=== PATIENT | male | born 1930 | race Caucasian/White ===

== ENCOUNTER 2017-05-12 03:59 | Inpatient (IN) | payer MEDICARE, BC ==
--- NOTE | 2017-05-12 04:58 | ED ---
Chau Reis Benjamin, scribed for Mike Yanes MD on 05/12/17 at 0443 . Complex/Multi-Sys Presentation - HPI Summary HPI Summary: 86yo male BIBA for weakness. Pt has existing impaired vision, numbness, and weakness on his right side s/p CVA x2. Pt lowered himself to the ground last night due to weakness and couldnt get back up since. Pt denies a fall, and also denies any head injury. Pt states feeling oozy and weakness for a while, but couldnt specify for how long exactly. - History Of Current Complaint Chief Complaint: EDWeakness Time Seen by Provider: 05/12/17 04:34 Hx Obtained From: Patient Onset/Duration: Gradual Onset, Lasting Hours, Still Present Timing: Constant Severity Currently: Mild Severity Initially: Mild Location: Negative Associated Signs And Symptoms: Positive: Other - weakness - Allergies/Home Medications Allergies/Adverse Reactions: Allergies Allergy/AdvReac Type Severity Reaction Status Date / Time No Known Allergies Allergy Verified 09/04/13 15:06 PMH/Surg Hx/FS Hx/Imm Hx Endocrine/Hematology History: Denies: Hx Diabetes, Hx Thyroid Disease Cardiovascular History: Reports: Other Cardiovascular Problems/Disorders - CARDIOVERSION X 2 Denies: Hx Congestive Heart Failure, Hx Hypertension, Hx Pacemaker/ICD Respiratory History: Reports: Hx Pneumonia, Hx Pulmonary Embolism Denies: Hx Asthma, Hx Chronic Obstructive Pulmonary Disease (COPD), Other Respiratory Problems/Disorders GI History: Denies: Hx Ulcer History: Reports: Hx Benign Prostatic Hyperplasia, Other Problems/ Disorders - prostate ca Denies: Hx Acute Renal Failure, Hx Chronic Renal Failure, Hx Dialysis, Hx Kidney Infection, Hx Kidney Stones Sensory History: Reports: Hx Contacts or Glasses, Hx Vision Problem - 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, Hx Hearing Aid - BL, Hx Hearing Problem Denies: Hx Cataracts, Hx Eye Injury, Hx Eye Prosthesis, Hx Glaucoma, Hx Macular Degeneration, Hx Deafness, Other Sensory Impairments Opthamlomology History: Reports: Hx Contacts or Glasses, Hx Vision Problem - 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 Infectious Disease History: No Infectious Disease History: Denies: Hx Clostridium Difficile, Hx Hepatitis, Hx Human Immunodeficiency Virus (HIV), Hx of Known/Suspected MRSA, History Other Infectious Disease, Traveled Outside the [place] in Last 30 Days - Family History Known Family History: Positive: Unknown - unable to obtain, pt wouldnt give a Fhx - Social History Occupation: Retired Lives: Senior [facility] Alcohol Use: None Substance Use Type: Reports: None Hx Tobacco Use: Yes Smoking Status (MU): Never Smoked Tobacco Review of Systems Constitutional: Negative Eyes: Negative ENT: Negative Cardiovascular: Negative Respiratory: Negative Gastrointestinal: Negative Genitourinary: Negative Musculoskeletal: Negative Skin: Negative Positive: Weakness Psychological: Normal All Other Systems Reviewed And Are Negative: Yes Physical Exam Triage Information Reviewed: Yes Vital Signs On Initial Exam: Initial Vitals Temp Pulse Resp BP Pulse Ox 99.6 F 63 14 107/56 93 05/12/17 04:04 05/12/17 04:04 05/12/17 04:04 05/12/17 04:04 05/12/17 04:04 Vital Signs Reviewed: Yes Appearance: Positive: Well-Appearing, No Pain Distress Skin: Positive: Warm Head/Face: Positive: Normal Head/Face Inspection Eyes: Positive: GONZALES ENT: Positive: Hearing grossly normal Neck: Positive: Supple Respiratory/Lung Sounds: Positive: Breath Sounds Present Cardiovascular: Positive: RRR Abdomen Description: Positive: Nontender, Soft Bowel Sounds: Positive: Present Musculoskeletal: Positive: Strength/ROM Intact Neurological: Positive: Alert, Oriented to Person Place, Time Psychiatric: Positive: Affect/Mood Appropriate - Juany Coma Scale Coma Scale Total: 15 Diagnostics - Vital Signs Vital Signs Temp Pulse Resp BP Pulse Ox 05/12/17 04:04 99.6 F 63 14 107/56 93 - Laboratory Result Diagrams: 05/12/17 05:15 05/12/17 05:15 Lab Statement: Any lab studies that have been ordered have been reviewed, and results considered in the medical decision making process. - Radiology CXR Xray Interpretation: No Acute Changes Radiology Interpretation Completed By: ED Physician - EKG 0540. Cardiac Rate: NL - 60bpm EKG Rhythm: Sinus Rhythm EKG Interpretation: Right bundle first degree heart block Re-Evaluation - Re-Evaluation First Eval Comment: results d/w pt, case d/w dr danielle Complex Multi-Symp Course/Dx Course Of Treatment: discussed with Dr. Danielle (hospitalist) at 0605. - Diagnoses Provider Diagnoses: ACS (acute coronary syndrome) Discharge - Discharge Plan Condition: Fair Disposition: ADMITTED TO [facility] Referrals: Joo Jarrett MD [Primary Care Provider] - The documentation as recorded by the Chau palm Benjamin accurately reflects the service I personally performed and the decisions made by me, Mike Yanes MD.
[2017-05-12 05:37] LABS: Hematocrit 36 % (42-52); Hemoglobin 12.2 g/dl (14.0-18.0); Mean Corpuscular HGB Conc 34 g/dl (31-36); Mean Corpuscular Hemoglobin 31 pg (27-31); Mean Corpuscular Volume 91 fL (80-94); Mean Platelet Volume 10 um3 (7.4-10.4); Red Cell Distribution Width 14 % (10.5-15); White Blood Count 19.4 10^3/ul (3.5-10.8)
[2017-05-12 05:42] LABS: Add Diff/Slide Review? Slide Review Added; Comments Flag Yes
[2017-05-12 05:47] LABS: Albumin 3.4 g/dL (3.2-5.2); Calcium 9.2 mg/dL (8.6-10.3); EGFR African American 38.5 (>60); Globulin 3.7 g/dL (2-4); Magnesium 1.8 mg/dL (1.9-2.7); Total Protein 7.1 g/dL (6.4-8.9)
[2017-05-12 05:52] LABS: Troponin I 0.19 ng/mL (<0.04)
[2017-05-12] MEDS ORDERED: Aspirin Low Dose CHEW TAB* 81 MG PO ONE (05:53)
[2017-05-12] MEDS ORDERED: Aspirin Low Dose CHEW TAB* 81 MG ONE (05:54)
[2017-05-12 07:02] LABS: Urine Bacteria 3+ (Absent); Urine Bilirubin Negative (Negative); Urine Glucose Negative (Negative); Urine Nitrite Positive (Negative)
[2017-05-12] MEDS: cefTRIAXone VIAL(*) 1,000 MG in NS 0.9% 50 ML* 50 ML IVPB SCH (08:24)
--- NOTE | 2017-05-12 08:28 | RAD ---
INDICATION: Weakness. COMPARISON: Comparison is made with prior chest x-ray study from June 03, 2013. TECHNIQUE: Dual-energy PA and lateral views of the chest were obtained. FINDINGS: The heart is within normal limits in size. Mediastinal and hilar contours appear within normal limits. The lungs are underinflated and clear. There is flattening of the diaphragms suggestive of chronic obstructive pulmonary disease. IMPRESSION: 1. NO EVIDENCE FOR ACUTE FINDING. 2. FINDINGS SUGGESTIVE OF COPD.
[2017-05-12] MEDS ORDERED: Acetaminophen TAB* 325 MG PO PRN (08:29)
[2017-05-12] MEDS ORDERED: Morphine INJ* 2 MG/ML 1 ML SYRINGE IV PRN (08:29)
--- NOTE | 2017-05-12 08:50 | RAD ---
Indication: Intracranial hemorrhage, fall. CT of the brain was performed without IV contrast. Comparison is made with previous exam dated June 04, 2013. Ventricular structures are midline. No midline shift is noted. The extraction spaces are unremarkable. Hypodensity is noted in the left occipital lobe medially consistent with old infarct. This is unchanged from previous exam. Mastoid air cells and paranasal sinuses are otherwise unremarkable. Paranasal sinuses are otherwise unremarkable. 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 No intracranial hemorrhage is noted.
[2017-05-12] MEDS: NS 0.9% 1000 ML* 1,000 ML IV SCH ×2 (09:43→18:47)
[2017-05-12] MEDS: Amiodarone TAB* 200 MG PO SCH ×2 (09:43→20:49)
--- NOTE | 2017-05-12 10:14 | HP ---
CC: Dr. Han; Dr. Jarrett * HISTORY AND PHYSICAL: DATE OF ADMISSION: 05/12/17 PRIMARY CARE PROVIDER: Dr. Jarrett. CHIEF COMPLAINT: Confusion, generalized weakness. HISTORY OF PRESENT ILLNESS: Luciano Neumann is an 86-year-old male who presents confused, brought in from [facility]. Apparently, the patient was found on the floor. Originally, he did not want to come in to be evaluated, but he was not strong enough to ambulate by himself. He denied any chest pain or shortness of breath when he was found. He stated that he thought that he took a nap, but then he found himself on the floor and he does not remember how he got there. He is also disoriented to date and day. He thinks that it was still , but it was Monday morning. The patient has abrasions on his head and he does not remember hitting his head. He has marked leukocytosis, abnormal urinalysis, and a working diagnosis of severe sepsis. He also has elevated troponin but no complaints of chest pain. He is going to be admitted to telemetry monitored floor. PAST MEDICAL HISTORY: 1. History of paroxysmal atrial flutter, status post cardioversion in the past , on amiodarone and Pradaxa. 2. History of PE in the past, on Pradaxa. 3. History of basal cell carcinoma. 4. History of prostate cancer. 5. 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 Patient ambulates without support. 6. Chronic kidney disease stage 3 with creatinine of 1.8 at baseline. MEDICATIONS: Include: 1. VESIcare 10 mg daily. 2. Pradaxa 150 mg b.i.d. 3. Amiodarone 200 mg b.i.d. ALLERGIES: No known drug allergies. SOCIAL HISTORY: The patient stated that he stopped smoking over 50 years ago and he does not have a significant smoking history. He denies any alcohol or drug use. He lives by himself at [facility] and he has trouble explaining to me which part of [facility] he is living in. I suspect that it was in the [facility]. His healthcare proxy is his friend, Rosario Tesfaye, phone #. The patient lives alone. 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 He is a vegan. His altered healthcare proxy is his daughter, Katie Alcaraz. He has overall two children. REVIEW OF SYSTEMS: Please see history of present illness. The patient is a very vague historian and disoriented. He denies any headache, chest pain. He states that he has problems with "seeing to the right" after his stroke. He also has mild right-sided weakness, but that is chronic. He can ambulate without a cane though. He does not remember what happened in the past 2 days, but he stated that he had no appetite for 3 days before that. He also complains of burning on urination. He denies chest pain. All the remaining 14 systems are reviewed with the patient and the response was mostly vague, but otherwise they were negative. PHYSICAL EXAMINATION GENERAL: The patient is a pleasant 86-year-old male who is in no acute distress. The patient knows that he is in the hospital. He does not remember his age. He does not remember the year. He remembers that the president is [employer]. VITAL SIGNS: Blood pressure of 110/44, heart rate of 57 and regular, respiratory rate 26, oxygen saturation 93% on room air, temperature of 99.6. HEENT: Head with two abrasions, one in the center of patient's forehead and another one with a tiny hematoma on the left frontal scalp parietal area. Eyes : Extraocular muscles intact. Pupils are equal and reactive to light and accommodation. Oropharynx clear. Mucosa dry. NECK: Supple. No JVD, no bruits bilaterally. RESPIRATORY: Clear to auscultation bilaterally. CARDIOVASCULAR: Regular rate and rhythm. No murmur. ABDOMEN: Soft, nontender. Bowel sounds presents in all four quadrants. EXTREMITIES: There is trace bilateral ankle edema. Pulses are +2 bilaterally. No clubbing or cyanosis. NEUROLOGIC: Speech clear. The patient has right-sided homonymous hemianopsia on evaluation. 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 The left upper and lower extremity are 5/5 bilaterally in motor strength. Finger-to- nose is noted and symmetric bilaterally. Speech is clear. PSYCHIATRIC EVALUATION: Patient is slightly disoriented, poor historian. Very pleasant, cooperative. SKIN: On evaluation of the skin, apart from the patient's forehead and on the scalp of the left parietal area, the patient has a small area of what appears to be an old abrasion that is partially healed on his right anterior acuna of 1 cm in diameter. LABORATORY DATA: Sodium of 132, potassium 4, chloride 100, carbon dioxide 24, BUN 40, creatinine 2.1. Liver function tests are unremarkable. Lactic acid 1.6. Troponin of 0.19. Repeat troponin of 0.25. Magnesium of 1.8. CBC: White blood cell count of 19.4, hemoglobin was 12.2, hematocrit of 36, and platelets of 140. Urinalysis: +2 white blood cells, +3 esterase, +3 bacteria. Patient's EKG showed right bundle branch block with heart rate of 60 beats per minute with negative T in lead III. Comparing with an EKG from 2013, the right bundle branch block is new. Portable chest x-ray reviewed by myself shows no gross infiltrates. The official radiology report is still pending. CT of the head is still pending at the time of dictation. ASSESSMENT AND PLAN: 1. Patient's altered mental status, leukocytosis, history of dysuria with abnormal urinalysis. Patient most likely has urinary tract infection and sepsis due to that. Due to the patient's low platelet level as well as Juany Coma Scale of 14, he is at this point in stage of severe sepsis. He is going to be placed on ceftriaxone for presumed urinary tract infection. Urine cultures and blood cultures are going to be obtained. 2. In regards of patient's history of atrial flutter, the patient currently is in sinus rhythm. The patient is going to be continued on amiodarone. 3. In regards of the patient's anticoagulation, the patient's creatinine is elevated today slightly from his baseline, most likely due to acute kidney injury due to sepsis. At this point, the patient's calculated creatinine clearance is below 30 and today appears to be at 23. Due to that, Pradaxa is not a good medication for anticoagulation for this patient. I will consider Eliquis to treat patient with, but I will not start it until approximately 24 hours from now. It appears that the patient could have been at a higher dose of anticoagulant than needed at this point. He also has history of recent head trauma as evidenced by the abrasions on his head. Due to that, I will continue neuro checks every 2 hours and hold his anticoagulants for 24 hours. At this point, I will start Eliquis at 2.5 mg twice a day. 4. In regards to patient's altered mental status, as mentioned above, it most likely is due to severe sepsis, but at this point, the patient has abrasions of his head and evidence of head trauma, we will hold anticoagulation. CT of the head is pending at the time of dictation. 5. Patient's code status is full. 6. For DVT prophylaxis, for the time being sequential compression devices. Anticoagulants are going to be held as above mentioned. Please also note the patient has acute kidney injury with increased creatinine from his baseline, most likely due to severe sepsis. TIME SPENT: Approximately 75 minutes was spent on admission of this patient; more than half that time was spent [id number] with the patient during the interview and physical exam. [id number]/[facility] #: [id number] EVAN
--- NOTE | 2017-05-12 15:56 | RAD ---
HISTORY: Rule out hydronephrosis COMPARISONS: CT dated August 15, 2016 TECHNIQUE: Multiple transverse and longitudinal ultrasound images were obtained of the kidneys using grayscale and color Doppler imaging. FINDINGS: RIGHT KIDNEY: There is a cyst of the upper pole of the right kidney with a thin internal septation measuring 4 x 4.3 x 3.6 cm. This is similar to the previous CT examination accounting for differences in technique.. There is no hydronephrosis or nephrolithiasis. The right kidney measures 11 x 4.5 x 4.7 cm. LEFT KIDNEY: There is an exophytic simple cyst of the midpole of left kidney measuring 1.2 x 1.1 x 0.8 cm. This is similar to the previous CT accounting for differences in technique. There is no hydronephrosis or nephrolithiasis. The left kidney measures 9.8 x 4.5 x 4.7 cm. BLADDER: No images are submitted of the bladder. AORTA AND IVC: No images are submitted of the vasculature. RETROPERITONEUM: Unremarkable. OTHER: None. IMPRESSION: RENAL CYSTS. NO HYDRONEPHROSIS.
--- NOTE | 2017-05-12 17:09 | ECHO ---
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 Technical Comments: The study quality is fair. The study is technically limited due to patient body habitus. Completed at 1315. Left Ventricle: The left ventricular chamber size is normal. Mild concentric left ventricular hypertrophy is observed. There is increased basal septal hypertrophy noted without evidence of an increased gradient across the left ventricular outflow tract. Global left ventricular wall motion and contractility are within normal limits. There is normal left ventricular systolic function. The estimated ejection fraction is 55-60%. Abnormal left ventricular diastolic function is observed. Left Atrium: The left atrium is moderately dilated. Right Ventricle: The right ventricular cavity size is normal. The right ventricular global systolic function is normal. Right Atrium: The right atrium is moderately dilated. Aortic Valve: The aortic valve is trileaflet. Mild aortic leaflet calcification is visualized. Systolic excursion of the aortic valve cusps is reduced. There is trace to mild aortic regurgitation. There is mild aortic stenosis. The mean gradient of the aortic valve is 14.66 mmHg. The peak instantaneous gradient of the aortic valve is 24.74 mmHg. The aortic valve area, by peak velocities, is calculated at 2.16 cm2. The aortic valve area, by VTI's, is calculated at 2.5 cm2. The highest aortic valve velocity was obtained with the standard probe from the A5C view. Mitral Valve: There is mitral annular calcification. The mitral valve leaflets are mildly thickened. There is mild to moderate mitral regurgitation. There is borderline mitral stenosis. Tricuspid Valve: The tricuspid valve leaflets are normal. There is mild to moderate tricuspid regurgitation. There is evidence of borderline pulmonary hypertension. There is no tricuspid stenosis. Pulmonic Valve: The pulmonic valve appears normal. There is a trace pulmonic regurgitation. There is no pulmonic stenosis. Pericardium: There is no significant pericardial effusion. Aorta: There is mild dilatation of the ascending aorta. There is no dilatation of the aortic arch. There is no dilation of the aortic root. Pulmonary Artery: The main pulmonary artery is not well visualized. Venous: The inferior vena cava is dilated. There is a greater than 50% respiratory change in the inferior vena cava dimension. Conclusions Mild concentric left ventricular hypertrophy is observed. There is increased basal septal hypertrophy noted without evidence of an increased gradient across the left ventricular outflow tract. The estimated ejection fraction is 55-60%. Abnormal left ventricular diastolic function is observed. The left atrium is moderately dilated. The right atrium is moderately dilated. There is mild aortic stenosis. There is trace to mild aortic regurgitation. There is mild to moderate mitral regurgitation. There is borderline mitral stenosis. There is mild to moderate tricuspid regurgitation. There is mild dilatation of the ascending aorta. Similar to 1.2013 Measurements Name Value Normal Range RVIDd (AP) 2D 2.7 cm (0.9 - 2.6) RVDdMajor (2D) 3.8 cm (2.2 - 4.4) RAd ISD 4CH 5.7 cm (3.4 - 4.9) RA (A4C)W 5.1 cm (2.9 - 4.6) IVSd (2D) 1.3 cm (0.6 - 1) LVPWd (2D) 1.2 cm (0.6 - 1) LVIDd (2D) 3.8 cm (3.6 - 5.4) LVIDs (2D) 3 cm - LV FS (2D) 22 % (25 - 45) Aortic Annulus 2 cm (1.4 - 2.6) Ao root diameter (2D) 3.4 cm (2.1 - 3.5) Ascending Ao 3.6 cm (2.1 - 3.4) Aortic arch 2.7 cm (1.8 - 3.4) LA dimension (AP) 2D 4.5 cm (2.3 - 3.8) LAd ISD 4CH 6.6 cm (2.9 - 5.3) LA ISD 4CH W 5.4 cm (2.5 - 4.5) Name Value Normal Range LA ESV SP 4CH (A/L) 108 ml - LA ESV SP 2CH (A/L) 157 ml - LA ESV BP (A/L) 136 ml - LA ESV BP (A/L) index 74.28 ml/m2 - LA ESV SP 4CH (MOD) 95 ml - LA ESV SP 2CH (MOD) 150 ml - Name Value Normal Range MV E-wave Vmax 0.8 m/sec - MV deceleration time 277.9 msec - MV A-wave Vmax 0.92 m/sec - MV E:A ratio 0.89 ratio - LV septal e' Vmax 0.06 m/sec - LV lateral e' Vmax 0.08 m/sec - LV E:e' septal ratio 13.3 ratio - LV E:e' lateral ratio 10 ratio - Name Value Normal Range AV Vmax 2.5 m/sec - AV VTI 48.2 cm - AV peak gradient 24.74 mmHg - AV mean gradient 14.66 mmHg - LVOT diameter 2.1 cm - LVOT Vmax 1.56 m/sec - LVOT VTI 34.9 cm - LVOT peak gradient 9.78 mmHg - LVOT mean gradient 5.46 mmHg - DOI (VTI) 0.72 ratio - DOI (Vmax) 0.62 ratio - LINDA (continuity Vmax) 2.16 cm2 - LINDA (continuity VTI) 2.5 cm2 - MYLA Vmax 0.65 m/sec - Name Value Normal Range MV Vmax 1.18 m/sec - MV VTI 37.04 cm - MV peak gradient 5.61 mmHg - MV mean gradient 1.36 mmHg - MV PHT 130.28 msec - MVA (continuity VTI) 3.26 cm2 - Name Value Normal Range TR Vmax 2.7 m/sec - TR peak gradient 26 mmHg - RAP 8 mmHg - RVSP 34 mmHg - IVC diameter 2.3 cm - Name Value Normal Range PV Vmax 0.77 m/sec - PV peak gradient 2.35 mmHg -
[2017-05-13] MEDS: NS 0.9% 1000 ML* 1,000 ML IV SCH ×2 (03:42→12:56)
[2017-05-13 05:41] LABS: Hematocrit 31 % (42-52); Hemoglobin 10.2 g/dl (14.0-18.0); Mean Corpuscular HGB Conc 33 g/dl (31-36); Mean Corpuscular Hemoglobin 30 pg (27-31); Mean Corpuscular Volume 92 fL (80-94); Mean Platelet Volume 9 um3 (7.4-10.4); Red Blood Count 3.37 10^6/ul (4.0-5.4); Red Cell Distribution Width 14 % (10.5-15); White Blood Count 13.8 10^3/ul (3.5-10.8)
[2017-05-13 05:53] LABS: BUN/Creatinine Ratio 23.6 (8-20); Calcium 8.2 mg/dL (8.6-10.3); EGFR African American 53.9 (>60); EGFR Non-African American 41.9 (>60); Potassium 4.1 mmol/L (3.5-5.0)
[2017-05-13 06:00] LABS: Troponin I 0.14 ng/mL (<0.04)
[2017-05-13] MEDS: Amiodarone TAB* 200 MG PO SCH ×2 (08:10→21:52)
[2017-05-13] MEDS: cefTRIAXone VIAL(*) 1,000 MG in NS 0.9% 50 ML* 50 ML IVPB SCH (08:10)
[2017-05-13] MEDS ORDERED: Pneumococcal Vac Polyvalent* 0.5 ML VIAL IM ONE (09:00)
--- NOTE | 2017-05-13 10:31 | PN ---
Subjective Date of Service: 05/13/17 Interval History: Mr. Neumann states that he is feeling much better today. He confirms dysuria and frequency which has been ongoing for the past few days. He has been up ambulating with his cane independently. He denies chest pain, SOB, nausea, or abdominal pain. Objective Active Medications: Acetaminophen (Tylenol Tab*) 650 mg PO Q4H PRN Amiodarone HCl (Cordarone Tab*) 200 mg PO BID REAGAN Sodium Chloride (Ns 0.9% 1000 Ml*) 1,000 mls @ 125 mls/hr IV PER RATE REAGAN Ceftriaxone Sodium 1,000 mg/ (Sodium Chloride) 50 mls @ 200 mls/hr IVPB Q24H REAGAN Morphine Sulfate (Morphine Inj (Syringe)*) 1 mg IV Q4H PRN Vital Signs 05/12/17 05/12/17 05/12/17 11:13 13:50 14:50 Temperature 100.7 F 102.2 F 99.0 F Pulse Rate 65 Respiratory 16 Rate Blood Pressure 129/62 (mmHg) O2 Sat by Pulse 92 Oximetry 05/12/17 05/12/17 05/12/17 15:44 17:23 19:36 Temperature 98.6 F 98.6 F Pulse Rate 52 55 52 Respiratory 20 18 Rate Blood Pressure 101/38 116/53 103/42 (mmHg) O2 Sat by Pulse 93 93 93 Oximetry 05/12/17 05/12/17 05/13/17 20:00 23:12 03:27 Temperature 99.9 F 100.0 F Pulse Rate 58 51 Respiratory 16 20 20 Rate Blood Pressure 131/52 112/47 (mmHg) O2 Sat by Pulse 95 94 Oximetry 05/13/17 05/13/17 07:33 08:00 Temperature 98.9 F Pulse Rate 52 Respiratory 16 18 Rate Blood Pressure 112/61 (mmHg) O2 Sat by Pulse 94 Oximetry Oxygen Devices in Use Now: None Appearance: Elderly male sitting up in chair in NAD Eyes: No Scleral Icterus Ears/Nose/Mouth/Throat: Mucous Membranes Moist Neck: Trachea Midline Respiratory: Symmetrical Chest Expansion and Respiratory Effort, Clear to Auscultation Cardiovascular: NL Sounds; No Murmurs; No JVD, No Edema Abdominal: NL Sounds; No Tenderness; No Distention Lymphatic: No Cervical Adenopathy Extremities: No Edema Skin: No Rash or Ulcers Neurological: Alert and Oriented x 3, NL Muscle Strength and Tone Nutrition: Taking PO's Result Diagrams: 05/13/17 05:29 05/13/17 05:29 Microbiology and Other Data: Microbiology 05/12/17 10:14 Aerobic Blood Culture - Preliminary Blood Venous No Growth Day 1 Anaerobic Blood Culture - Preliminary No Growth Day 1 05/12/17 07:15 Nasal Screen MRSA (PCR)(MARCO) - Final Nasal Mrsa Negative Assess/Plan/Problems-Billing Assessment: Mr. Neumann is an 86 yo male with a PMH of aflutter, PE, CVA, prostate cancer, and CKD who was admitted on 05/13/17 with confusion and weakness with UTI. - Patient Problems (1) Sepsis Comment: Resolving. From UTI, treating with ceftriaxone. (2) UTI (urinary tract infection) Comment: Confusion and weakness resolving. Continue ceftriaxone, monitor urine cultures. (3) SAMARA (acute kidney injury) Comment: Resolved. Suspect secondary to dehydration and sepsis. (4) Afib Comment: SR. Continue amiodarone. Resume pradaxa tonight, creatine clearance now > 30. (5) Hx pulmonary embolism Comment: Continue pradaxa. (6) History of CVA (cerebrovascular accident) Comment: CT brain on arrival only shows old infarct. (7) DVT prophylaxis Comment: Pradaxa. (8) Full code status Status and Disposition: Inpatient with expected LOS > 2 days. Anticipate return to [place] when medically stable.
[2017-05-13] MEDS: CMC:Dabigatran CAP(NF) 150 MG CAP PO SCH (21:51)
[2017-05-14] MEDS: NS 0.9% 1000 ML* 1,000 ML IV SCH (02:41)
[2017-05-14 07:33] VITALS: BP 132/62
--- NOTE | 2017-05-14 07:43 | PN ---
Subjective Date of Service: 05/14/17 Interval History: Mr. Neumann states that he is feeling much better today. He denies chest pain, SOB, nausea, or abdominal pain. He is eager to return home to [place]. Objective Active Medications: Acetaminophen (Tylenol Tab*) 650 mg PO Q4H PRN Amiodarone HCl (Cordarone Tab*) 200 mg PO BID REAGAN Dabigatran (Pradaxa Cap(Nf)) 150 mg PO BID REAGAN Sodium Chloride (Ns 0.9% 1000 Ml*) 1,000 mls @ 125 mls/hr IV PER RATE REAGAN Ceftriaxone Sodium 1,000 mg/ (Sodium Chloride) 50 mls @ 200 mls/hr IVPB Q24H REAGAN Morphine Sulfate (Morphine Inj (Syringe)*) 1 mg IV Q4H PRN Vital Signs 05/13/17 05/13/17 05/13/17 08:00 11:49 15:22 Temperature 98.9 F 98.4 F Pulse Rate 48 48 Respiratory 18 16 17 Rate Blood Pressure 125/49 110/50 (mmHg) O2 Sat by Pulse 96 96 Oximetry 05/13/17 05/13/17 05/13/17 19:21 20:00 23:52 Temperature 98.8 F 98.6 F Pulse Rate 51 52 Respiratory 18 18 18 Rate Blood Pressure 122/60 125/55 (mmHg) O2 Sat by Pulse 98 94 Oximetry 05/14/17 05/14/17 03:27 07:27 Temperature 98.3 F 97.9 F Pulse Rate 51 50 Respiratory 16 16 Rate Blood Pressure 131/84 132/62 (mmHg) O2 Sat by Pulse 92 96 Oximetry Oxygen Devices in Use Now: None Appearance: Elderly male sitting up in chair in NAD Eyes: No Scleral Icterus Ears/Nose/Mouth/Throat: Mucous Membranes Moist Neck: Trachea Midline Respiratory: Symmetrical Chest Expansion and Respiratory Effort, Clear to Auscultation Cardiovascular: NL Sounds; No Murmurs; No JVD, No Edema Abdominal: NL Sounds; No Tenderness; No Distention Lymphatic: No Cervical Adenopathy Extremities: No Edema Skin: No Rash or Ulcers Neurological: Alert and Oriented x 3, NL Muscle Strength and Tone Nutrition: Taking PO's Result Diagrams: 05/13/17 05:29 05/13/17 05:29 Microbiology and Other Data: Microbiology 05/12/17 10:14 Aerobic Blood Culture - Preliminary Blood Venous No Growth Day 1 Anaerobic Blood Culture - Preliminary No Growth Day 1 05/12/17 07:15 Nasal Screen MRSA (PCR)(MARCO) - Final Nasal Mrsa Negative Assess/Plan/Problems-Billing Assessment: Mr. Neumann is an 86 yo male with a PMH of aflutter, PE, CVA, prostate cancer, and CKD who was admitted on 05/13/17 with confusion and weakness with UTI. - Patient Problems (1) Sepsis Comment: Resolved. From UTI, treating with bactrim. (2) UTI (urinary tract infection) Comment: Confusion and weakness resolved . Switch to bactrim based on Klebsiella sensitivities, recommend 14 day course and follow up with Dr. Han who is his outpatient urologist. (3) SAMARA (acute kidney injury) Comment: Resolved. Suspect secondary to dehydration and sepsis. (4) Afib Comment: SR. Continue amiodarone, dose corrected as had been reported incorrectly on admission. Continue pradaxa. (5) Hx pulmonary embolism Comment: Continue pradaxa. (6) History of CVA (cerebrovascular accident) Comment: CT brain on arrival only shows old infarct. (7) DVT prophylaxis Comment: Pradaxa. (8) Full code status Status and Disposition: Inpatient with expected LOS > 2 days. Discharge to [place].
[2017-05-14] MEDS: CMC:Dabigatran CAP(NF) 150 MG CAP PO SCH (07:51)
[2017-05-14] MEDS: cefTRIAXone VIAL(*) 1,000 MG in NS 0.9% 50 ML* 50 ML IVPB SCH (07:54)
[2017-05-14] MEDS: Sulfamethox/Trimethoprim DS 800/160* TAB PO SCH ×2 (09:46→10:47)
--- NOTE | 2017-05-15 01:57 | DS ---
CC: Dr. Jarrett; Dr. Han * HOSPITAL MEDICINE DISCHARGE SUMMARY: DATE OF ADMISSION: 05/12/17 DATE OF DISCHARGE: 05/14/17 PRIMARY CARE PHYSICIAN: Dr. Jarrett. UROLOGIST: Dr. Han. ATTENDING PHYSICIAN: Dr. Thalia Hodges * (dictation provided by Selma Olvera NP ) PRIMARY DIAGNOSES: 1. Weakness and confusion. 2. Urinary tract infection. 3. Acute on chronic kidney injury. SECONDARY DIAGNOSES: 1. History of paroxysmal atrial flutter, on amiodarone and Pradaxa. 2. History of pulmonary embolism, on Pradaxa. 3. History of basal cell carcinoma. 4. History of prostate cancer. 5. 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 6. Chronic kidney disease, stage 3. MEDICATIONS AT THE TIME OF DISCHARGE: 1. Bactrim DS 1 tab p.o. b.i.d. x14 days. 2. VESIcare 10 mg daily. 3. Pradaxa 150 mg p.o. b.i.d. 4. Amiodarone 100 mg p.o. daily. HOSPITAL COURSE: Mr. Neumann is an 86-year-old male with a past medical history of atrial flutter, pulmonary embolism, prostate cancer, and two CVAs in the past, who presented to the hospital on 05/12/17 with confusion and generalized weakness. Please see the dictated H and P from Dr. Marci Oconnell for complete details. In brief, the patient fell on the floor and was unable to get up. He called for help through his instructional support technician at [facility] who alerted EMS. In the emergency room, he was found to have altered mental status with leukocytosis and a reported history of dysuria. Urinalysis was positive for urinary tract infection. Mr. Neumann was admitted to the hospital. He was initially treated with ceftriaxone. Microbiology results revealed Klebsiella oxytoca that was sensitive to Bactrim and he is now been transitioned over to Bactrim therapy. I recommend that he follows up with Dr. Han, who he sees q.6 months, within the next 1 to 2 weeks for evaluation in the setting of UTI with known prostate cancer. The patient did have an elevation in his baseline creatinine to 2.10 at the time of admission, with the IV hydration his creatinine is now 1.57. Mr. Neumann had an elevated troponin at the time of arrival that was 0.19, and peaked at 0.37. I suspect that this is demand ischemia in the setting of illness. He did undergo transthoracic echocardiogram, which is read as follows : "Mild concentric left ventricular hypertrophy is observed, the estimated ejection fraction is 55% to 60%, abnormal left ventricular diastolic function is observed, the left atrium is moderately dilated, the right atrium is moderately dilated, there is mild aortic stenosis." I note that this is similar to his previous echocardiogram from 2012. Again, the patient was asymptomatic and complained of no chest pain. Mr. Neumann is medically stable for discharge to home to follow up with Dr. Han and Dr. Jarrett regarding his urinary tract infection. DISPOSITION: To [facility]. DIET: Regular. ACTIVITY: As tolerated. FOLLOWUP PLANS: 1. Please follow up with Dr. Han in the next 1 to 2 weeks. 2. Please follow up with Dr. Jarrett in the next 1 to 2 weeks. TIME SPENT: Approximately 60 minutes was spent on the discharge of this patient , more than half the time was spent with the patient at the bedside reviewing the events leading up to this hospitalization, performing the physical examination, and reviewing my plan of care. SELMA OLVERA NP [id number]/[facility] #: [id number] EVAN
[2017-05-15] MEDS ORDERED: Amiodarone TAB* 200 MG PO SCH (09:00)
== END 2017-05-14 11:13 | disposition home or self-care (01) | DRG 872 ==
LOC: ED 03:59 → MEDTELE 06:59
PROVIDERS: ADMIT Internal Medicine; ATTEND Hospitalist
DX: A41.9 Sepsis, unspecified organism (principal); N17.9 Acute kidney failure, unspecified; I48.92 Unspecified atrial flutter; I69.351 Hemiplegia and hemiparesis following cerebral infarction affecting right dominant side; N39.0 Urinary tract infection, site not specified; R65.20 Severe sepsis without septic shock; B96.1 Klebsiella pneumoniae [K. pneumoniae] as the cause of diseases classified elsewhere; N18.3 Chronic kidney disease, stage 3 (moderate); C61 Malignant neoplasm of prostate; H53.461 Homonymous bilateral field defects, right side; S00.03XA Contusion of scalp, initial encounter; W18.30XA Fall on same level, unspecified, initial encounter; Y92.039 Unspecified place in apartment as the place of occurrence of the external cause; Z79.01 Long term (current) use of anticoagulants; Z87.891 Personal history of nicotine dependence; Z79.899 Other long term (current) drug therapy; Z85.821 Personal history of Merkel cell carcinoma; Z86.711 Personal history of pulmonary embolism
CPT/HCPCS: 36415; 70450; 71020; 76775; 80048; 80053; 81003; 81015; 83605; 83735; 84484; 85025; 87040; 87077; 87086; 87186; 87641; 90732; 93005; 93306; A9270-GY; J0696